=== PATIENT | female | born 1950 | race African-American/Black ===

== ENCOUNTER 2017-11-25 00:34 | Emergency (ER) | payer MEDICARE, MEDICAID ==
[~2017-11-25] VITALS: Ht 172.7 cm; Wt 83.9 kg
[~2017-11-25 00:34] MED LIST: BACLOFEN10 MG ORAL; BENADRYL50 MG ORAL; HYDROCHLOROTH12.5 M2 ORAL; IBUPROFEN200 MG ORAL; PREDNISONE20 MG ORAL; SIMVASTATIN5 MG ORAL; TENORMIN25 MG ORAL; TRAMADOL HCL50 MG ORAL; ZANTAC150 MG ORAL; ZESTORETIC 20/251 EA ORAL
[2017-11-25 00:35] VITALS: BP 184/105
--- NOTE | 2017-11-25 00:41 | Emergency Room Report ---
History of Present Illness General Chief Complaint: Vaginal Source: Patient Present Illness HPI Patient presents with complaints of right lower pelvic discomfort reports that She has had this discomfort off-and-on since 1995 After her total hysterectomy patient reports some complication with the procedure Had follow-up with her VERIFICATION CLERK since then And was given Motrin however patient had questionable bleeding And was given Tylenol More recently complains of discomfort to the right pelvic area Denies any vaginal discharge Denies any abdominal pain denies any back or flank pain Allergies: Coded Allergies: No Known Allergies (Unverified , 02/19/13) Patient History Past Medical History: see triage record Pertinent Family History: none Now: No Reviewed Nursing Documentation: PMH: Agreed; PSxH: Agreed Nursing Documentation-PMH Past Medical History: No History, Except For Hx Cardiac Problems: Yes Hx Hypertension: Yes Hx Cancer: No Hx Gastrointestinal Problems: Yes - GERD Hx Neurological Problems: No - Osteoprosis Review of Systems All Other Systems: negative except mentioned in HPI Physical Exam Vital Signs Date Time Temp Pulse Resp B/P (MAP) Pulse Ox O2 Delivery O2 Flow Rate FiO2 11/25/17 00:23 98.0 81 16 184/105 99 Room Air 98.1 Sp02 EP Interpretation: reviewed, normal General Appearance: well appearing, no apparent distress Head: normocephalic, atraumatic Eyes: bilateral eye PERRL, bilateral eye EOMI ENT: hearing grossly normal, normal pharynx, TMs + canals normal, uvula midline Neck: full range of motion, supple, no meningismus, no bony tend Respiratory: lungs clear, normal breath sounds, no rhonchi, no respiratory distress, no retraction, no accessory muscle use Cardiovascular #1: normal peripheral pulses, regular rate, rhythm, no edema, no gallop, no JVD, no murmur Gastrointestinal: normal bowel sounds, non tender, soft, no mass, no organomegaly, non-distended, no guarding, no hernia, no pulsatile mass, no rebound Genitourinary: no CVA tenderness Musculoskeletal: normal inspection Neurologic: oriented x3, responsive, veneer press operator III-XII nml as tested, motor strength/ tone normal, sensory intact Psychiatric: mood/affect normal Skin: normal color, no rash, warm/dry, palpation normal Lymphatic: normal inspection, no adenopathy Medical Decision Making Diagnostic Impression: Primary Impression: UTI (urinary tract infection) ER Course Multiple differentials were considered patient had baseline blood work along with urine sample tested Patient reports that she knows was wrong with her She reports that she has a retained metal object in her body that needs to be removed Patient's workup reveals a bladder infection as well It was discussed with her the chronicity of her presentation and the need for outpatient follow-up And the patient will return with any changes Labs Test 11/25/17 00:50 White Blood Count 3.3 K/UL (4.8-10.8) Red Blood Count 4.65 M/UL (4.20-5.40) Hemoglobin 14.4 G/DL (12.0-16.0) Hematocrit 42.7 % (37.0-47.0) Mean Corpuscular Volume 92 FL (80-99) Mean Corpuscular Hemoglobin 31.0 PG (27.0-31.0) Mean Corpuscular Hemoglobin Concent 33.8 G/DL (32.0-36.0) Red Cell Distribution Width 11.1 % (11.6-14.8) Platelet Count 207 K/UL (150-450) Mean Platelet Volume 6.8 FL (6.5-10.1) Neutrophils (%) (Auto) % (45.0-75.0) Lymphocytes (%) (Auto) % (20.0-45.0) Monocytes (%) (Auto) % (1.0-10.0) Eosinophils (%) (Auto) % (0.0-3.0) Basophils (%) (Auto) % (0.0-2.0) Urine Color Pale yellow Urine Appearance Slightly cloudy Urine pH 7 (4.5-8.0) Urine Specific [place] 1.010 (1.005-1.035) Urine Protein 1+ (NEGATIVE) Urine Glucose (UA) Negative (NEGATIVE) Urine Ketones Negative (NEGATIVE) Urine Occult Blood 2+ (NEGATIVE) Urine Nitrite Positive (NEGATIVE) Urine Bilirubin Negative (NEGATIVE) Urine Urobilinogen Normal MG/DL (0.0-1.0) Urine Leukocyte Esterase 2+ (NEGATIVE) Urine RBC 5-10 /HPF (0 - 2) Urine WBC 10-15 /HPF (0 - 2) Urine Squamous Epithelial Cells Moderate /LPF (NONE/OCC) Urine Bacteria Many /HPF (NONE) Sodium Level 140 MMOL/L (136-145) Potassium Level 3.6 MMOL/L (3.5-5.1) Chloride Level 102 MMOL/L (98-107) Carbon Dioxide Level 32 MMOL/L (21-32) Anion Gap 6 mmol/L (5-15) Blood Urea Nitrogen 13 mg/dL (7-18) Creatinine 1.0 MG/DL (0.55-1.30) Estimat Glomerular Filtration Rate > 60 mL/min (>60) Glucose Level 107 MG/DL (74-106) Calcium Level 9.9 MG/DL (8.5-10.1) Last Vital Signs Date Time Temp Pulse Resp B/P (MAP) Pulse Ox O2 Delivery O2 Flow Rate FiO2 11/25/17 00:23 98.0 81 16 184/105 99 Room Air 98.1 Status: improved Disposition: HOME, SELF-CARE Condition: Improved Scripts Acetaminophen With Codeine (T#3) (TYLENOL #3 TAB*) Y Tab 1 TAB ORAL Q8H PRN for For Pain, #10 TAB Prov: Melanie Taveras DO 11/25/17 Ibuprofen* (MOTRIN*) 600 Mg Tablet 600 MG ORAL Q8H PRN for For Pain, #20 TAB 0 Refills Prov: Melanie Taveras DO 11/25/17 Cephalexin* (KEFLEX*) 500 Mg Capsule 500 MG ORAL EVERY 6 HOURS for 7 Days, CAP Prov: Melanie Taveras DO 11/25/17 Additional Instructions: Patient is provided with the discharge instructions notified to follow up with primary doctor in the next 2-3 days otherwise return to the er with any worsening symptoms. Please note that this report is being documented using [employer] technology. This can lead to erroneous entry secondary to incorrect interpretation by the dictating instrument. Melanie Taveras DO Nov 25, 2017 00:41
[2017-11-25] MEDS ORDERED: Tylenol #3 tab (300mg/30mg) ORAL ONE (00:45)
[2017-11-25 01:14] LABS: HEMATOCRIT 42.7 % (37.0-47.0); HEMOGLOBIN 14.4 G/DL (12.0-16.0); MEAN CORPUSCULAR VOLUME 92 FL (80-99); PLATELET COUNT 207 K/UL (150-450); RED BLOOD COUNT 4.65 M/UL (4.20-5.40); RED CELL DISTRIBUTION WIDTH 11.1 % (11.6-14.8); WHITE BLOOD COUNT 3.3 K/UL (4.8-10.8)
[2017-11-25 01:22] LABS: ANION GAP 6 mmol/L (5-15); BLOOD UREA NITROGEN 13 mg/dL (7-18); CALCIUM 9.9 MG/DL (8.5-10.1); CARBON DIOXIDE 32 MMOL/L (21-32); CHLORIDE 102 MMOL/L (98-107); POTASSIUM 3.6 MMOL/L (3.5-5.1); SODIUM 140 MMOL/L (136-145)
[2017-11-25 01:30] LABS: BILIRUBIN, URINE NEGATIVE (NEGATIVE); COLOR,URINE PALE YELLOW; GLUCOSE, URINE (UA) NEGATIVE (NEGATIVE); KETONES,URINE NEGATIVE (NEGATIVE); LEUKOCYTE ESTERASE ,URINE 2+ (NEGATIVE); NITRITE,URINE POSITIVE (NEGATIVE); PH,URINE 7 (4.5-8.0); PROTEIN,URINE 1+ (NEGATIVE); UROBILINOGEN,URINE NORMAL MG/DL (0.0-1.0)
[2017-11-25 01:38] LABS: APPEARANCE,URINE SLIGHTLY CLOUDY
[2017-11-25 02:30] VITALS: BP 162/82
[2017-11-25] MEDS ORDERED: Cephalexin 500mg cap ORAL ONE (02:30)
[2017-11-25] MEDS ORDERED: CEPHALEXIN500 MG ORAL (02:43)
[2017-11-25] MEDS ORDERED: ACETAMINOPHEN-1 EAC1 ORAL (02:43)
[2017-11-25] MEDS ORDERED: IBUPROFEN600 MG ORAL (02:43)
[2017-11-25 02:55] VITALS: BP 162/82
== END 2017-11-25 02:55 | disposition home or self-care (01) ==
LOC: EDBD 00:34 → EMR 00:46
DX: N39.0 Urinary tract infection, site not specified (principal); Z90.710 Acquired absence of both cervix and uterus; I10 Essential (primary) hypertension; K21.9 Gastro-esophageal reflux disease without esophagitis; M81.0 Age-related osteoporosis without current pathological fracture
CPT/HCPCS: 36415; 80048; 81003; 85025; 87086; 87181; 99284

== ENCOUNTER 2017-12-08 06:18 | Emergency (ER) | payer MEDICARE, MEDICAID ==
[~2017-12-08] VITALS: Ht 172.7 cm; Wt 72.6 kg
[~2017-12-08 06:18] MED LIST changes: +ACETAMINOPHEN-1 EAC1 ORAL; +CEPHALEXIN500 MG ORAL; +IBUPROFEN600 MG ORAL
[2017-12-08 06:30] VITALS: BP 167/92
--- NOTE | 2017-12-08 07:52 | Emergency Room Report ---
History of Present Illness General Chief Complaint: Vaginal Source: Patient, EMS Present Illness HPI Patient was brought by paramedics Initial report was described as vaginal discomfort Going to the room to obtain history Patient reports to me and the nurse that she had an appointment here and wasn't sure why she was called Denies any fevers She reports that she has something in the right abdomen that was left behind from surgery from many years ago Still has not been able to obtain appropriate follow-up Given the patient's description and presentation I did make contact with different contact information that we have in the computer patient's daughter was reached She reports that the patient has been diagnosed with early Alzheimer's and dementia And she will be coming to the emergency room, Allergies: Coded Allergies: BACLOFEN (Unverified Allergy, Unknown, 12/08/17) TRAMADOL (Unverified Allergy, Unknown, 12/08/17) Patient History Limited by: medical condition Past Medical History: see triage record Pertinent Family History: none Last Menstrual Period: n/a Now: No Reviewed Nursing Documentation: PMH: Agreed; PSxH: Agreed Nursing Documentation-PMH Past Medical History: No History, Except For Hx Cardiac Problems: Yes Hx Hypertension: Yes Hx Cancer: No Hx Gastrointestinal Problems: Yes - GERD Hx Neurological Problems: No - Osteoprosis Review of Systems All Other Systems: negative except mentioned in HPI Physical Exam Vital Signs Date Time Temp Pulse Resp B/P (MAP) Pulse Ox O2 Delivery O2 Flow Rate FiO2 12/08/17 06:13 98.8 84 18 167/92 100 Room Air 98.8 Sp02 EP Interpretation: reviewed, normal General Appearance: well appearing, no apparent distress Head: normocephalic, atraumatic Eyes: bilateral eye PERRL, bilateral eye EOMI ENT: normal pharynx, no angioedema Neck: supple Respiratory: lungs clear, normal breath sounds Cardiovascular #1: regular rate, rhythm Gastrointestinal: non tender, soft Musculoskeletal: normal inspection Neurologic: alert, responsive Skin: normal color, no rash Lymphatic: no adenopathy Medical Decision Making Diagnostic Impression: Primary Impression: Abdominal pain ER Course Initially the patient appeared not to understand why she was here She was here previously with abdominal discomfort Also had reported previously that there was a foreign body left in her body So with these presentations contact was made with family members The daughter at this time has presented to the emergency room She reports of the patient is at her usual baseline mental status To have an appointment upcoming with her physician who has diagnosed her with early Alzheimer's She felt comfortable at this time given the patient's general presentation and demeanor going home and they will return with any concerns Last Vital Signs Date Time Temp Pulse Resp B/P (MAP) Pulse Ox O2 Delivery O2 Flow Rate FiO2 12/08/17 06:30 98.8 84 18 167/92 100 Room Air 98.8 Status: unchanged Disposition: HOME, SELF-CARE Condition: Stable Referrals: NOT CHOSEN IPA/MD,REFERRING (PCP) Additional Instructions: Patient is provided with the discharge instructions notified to follow up with primary doctor in the next 2-3 days otherwise return to the er with any worsening symptoms. Please note that this report is being documented using [employer] technology. This can lead to erroneous entry secondary to incorrect interpretation by the dictating instrument. Melanie Taveras DO Dec 08, 2017 07:52
[2017-12-08 07:58] VITALS: BP 167/92
== END 2017-12-08 07:58 | disposition home or self-care (01) ==
LOC: EDBD 06:18 → EMR 06:36
DX: R10.9 Unspecified abdominal pain (principal); I10 Essential (primary) hypertension; K21.9 Gastro-esophageal reflux disease without esophagitis; Z88.6 Allergy status to analgesic agent; M81.0 Age-related osteoporosis without current pathological fracture
CPT/HCPCS: 99283